=== PATIENT | female | born 1940 | race Caucasian/White ===

== ENCOUNTER → 2016-11-05 | Outpatient (CLI) | payer MEDICARE, OTHER ==
[~2016-11-05] MED LIST: ACET650T5 PO; ALBU8.5H PO; ASPI-611 PO; ESOM40CA24 PO; LISI1TAB9 PO; NAPR220T61 PO
== END ==
LOC: WC.BC 08:59
DX: Z12.31 Encounter for screening mammogram for malignant neoplasm of breast (principal); N64.59 Other signs and symptoms in breast
CPT/HCPCS: 77063; G0202